=== PATIENT | female | born 1940 | race Hispanic/Latino ===

== ENCOUNTER → 2023-09-10 | Outpatient (CLI) | payer OTHER | END | disposition home or self-care (01) | LOC: RAH 15:15 | PROVIDERS: ATTEND Neurological Surgery | DX: M48.56XA Collapsed vertebra, not elsewhere classified, lumbar region, initial encounter for fracture (principal); M47.816 Spondylosis without myelopathy or radiculopathy, lumbar region; M46.96 Unspecified inflammatory spondylopathy, lumbar region; M48.062 Spinal stenosis, lumbar region with neurogenic claudication; M51.16 Intervertebral disc disorders with radiculopathy, lumbar region; X58.XXXA Exposure to other specified factors, initial encounter; Y93.89 Activity, other specified; Y92.89 Other specified places as the place of occurrence of the external cause; Y99.8 Other external cause status | CPT/HCPCS: 72148 ==

== ENCOUNTER → 2024-07-23 | Outpatient (CLI) | payer OTHER, MEDICARE ==
--- NOTE | 2024-07-23 14:27 | HMCIMG ---
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 Sagittal and axial images were obtained. FINDINGS: Sagittal images show moderate superior endplate compression deformities of L3, L4 and L5. L2 vertebral body is intact. There there are severe compression deformities of L1, T12 and T11 with near vertebral planus. T7, T8, T9 and T10 are well preserved. Axial images show moderate ligamentum flavum and facet hypertrophic changes. Spinal canal is widely patent from L2-3 through L5-S1. There is mild narrowing at the thoracolumbar junction by mildly retropulsed fragments, there is no significant focal narrowing present. The lower thoracic cord appears unremarkable as does the cauda equina. Neural foramina appear preserved. IMPRESSION: 1. Severe near complete compression fractures of T11, T12 and L1, there is a minimally retropulsed fragments but no significant focal canal narrowing. 2. There are mild superior endplate compressions of L3, L4 and L5. 3. Degenerative changes present throughout, no evidence of disc herniation or focal spinal stenosis... 4. No acute findings, there is no osseous marrow edema to suggest acute compression fractures.
== END | disposition home or self-care (01) ==
LOC: RAH 07-23 13:15
PROVIDERS: ATTEND Neurological Surgery
DX: S22.080A Wedge compression fracture of T11-T12 vertebra, initial encounter for closed fracture (principal); S32.010A Wedge compression fracture of first lumbar vertebra, initial encounter for closed fracture; M46.96 Unspecified inflammatory spondylopathy, lumbar region; M48.062 Spinal stenosis, lumbar region with neurogenic claudication; M51.16 Intervertebral disc disorders with radiculopathy, lumbar region; X58.XXXA Exposure to other specified factors, initial encounter; Y93.89 Activity, other specified; Y92.89 Other specified places as the place of occurrence of the external cause; Y99.8 Other external cause status
CPT/HCPCS: 72148